=== PATIENT | male | born 1955 | race African-American/Black ===

== ENCOUNTER 2023-12-13 07:07 | Day surgery (SDC) | payer OTHER, SELFPAY ==
[2023-12-13] VITALS (8 sets, daily range): BP systolic 119–146; BP diastolic 77–91; BMI 33.1
[2023-12-13] MEDS: NORMOSOL-R 1000 IV (08:15)
[2023-12-13] MEDS: TYLENOL 1000 MG PO (08:16)
[2023-12-13] MEDS: Pyridium 200 MG PO (09:43)
== END 2023-12-13 10:54 | disposition home or self-care (01) ==
LOC: SDS 07:07
PROVIDERS: ATTENDING PHYSICIAN Specialist; FAMILY PHYSICIAN Internal Medicine
DX: N40.0 Benign prostatic hyperplasia without lower urinary tract symptoms (principal); N35.912 Unspecified bulbous urethral stricture, male; R31.0 Gross hematuria
CPT/HCPCS: 52000

== ENCOUNTER → 2024-02-20 11:38 | Outpatient (REF) | payer OTHER, SELFPAY | LOC: RAD 11:38 | PROVIDERS: ATTENDING PHYSICIAN Nurse Practitioner Family | DX: R59.0 Localized enlarged lymph nodes (principal) | CPT/HCPCS: 76536 ==

== ENCOUNTER → 2024-03-24 08:31 | Outpatient (REF) | payer OTHER, SELFPAY | LOC: HWRAD 08:31 | PROVIDERS: ATTENDING PHYSICIAN Nurse Practitioner Family; FAMILY PHYSICIAN Internal Medicine | DX: R59.0 Localized enlarged lymph nodes (principal) | CPT/HCPCS: 70491; Q9967 ==

== ENCOUNTER 2025-01-21 06:22 | Day surgery (SDC) | payer OTHER, SELFPAY | END 2025-01-21 12:15 | disposition home or self-care (01) | LOC: GI 06:22 | PROVIDERS: ATTENDING PHYSICIAN Internal Medicine Gastroenterology; FAMILY PHYSICIAN Internal Medicine | DX: K29.50 Unspecified chronic gastritis without bleeding (principal); K22.89 Other specified disease of esophagus; K44.9 Diaphragmatic hernia without obstruction or gangrene; K31.89 Other diseases of stomach and duodenum; R12 Heartburn | CPT/HCPCS: 43239; 88305; 88342 ==